=== PATIENT | female | born 1975 | race Caucasian/White ===

== ENCOUNTER 2017-01-14 23:24 | Emergency (ER) | payer MEDICAID ==
[~2017-01-14] VITALS: Ht 157.5 cm; Wt 99.8 kg
--- NOTE | 2017-01-14 23:26 | NUR ---
PATIENT STATES HAD A TRIP AND FALL 0100 TODAY AND NOW C/O LEFT KNEE PAIN,HEADACHE,NAUSEA WITH DIZZINESS, PT IS ALERT, ORIENTED X 4, NO RESP DISTRESS NOTED OR REPORTED UPON ASSESSMENT... MD AT BEDSIDE...
[2017-01-14] MEDS ORDERED: ONDANSETRON ODT 4 MG TAB.RAPDIS SL ONE (23:45)
[2017-01-14] MEDS ORDERED: LORAZEPAM 0.5 MG TABLET PO ONE (23:45)
[2017-01-14] MEDS ORDERED: OXYCODONE/APAP 5-325 MG TABLET PO ONE (23:45)
--- NOTE | 2017-01-14 23:49 | NUR ---
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
[2017-01-14] MEDS ORDERED: LORAZEPAM 0.5 MG TABLET ONE (23:56)
[2017-01-14] MEDS ORDERED: OXYCODONE/APAP 5-325 MG TABLET ONE (23:56)
[2017-01-14] MEDS ORDERED: ONDANSETRON ODT 4 MG TAB.RAPDIS ONE (23:56)
--- NOTE | 2017-01-15 00:09 | NUR ---
PT TAKEN VIA WHEEL CHAIR FOR CT SCAN OF HEAD...
--- NOTE | 2017-01-15 00:28 | NUR ---
PT RETURNED FROM CT SCAN OF HEAD...
--- NOTE | 2017-01-15 01:14 | NUR ---
Patient discharged to home in stable conditon. Written and verbal after care instructions given. Patient verbalizes understanding of instructions. Per pts request transferred pt via wheelchair...
[2017-01-15 01:18] VITALS: BP 126/81
== END 2017-01-15 01:19 | disposition home or self-care (01) ==
LOC: ER 23:24
DX: S83.92XA Sprain of unspecified site of left knee, initial encounter (principal); S93.402A Sprain of unspecified ligament of left ankle, initial encounter; E66.9 Obesity, unspecified; S09.90XA Unspecified injury of head, initial encounter; W01.0XXA Fall on same level from slipping, tripping and stumbling without subsequent striking against object, initial encounter; Y93.89 Activity, other specified; Y92.9 Unspecified place or not applicable; Y99.9 Unspecified external cause status
CPT/HCPCS: 70450; 73610; A4663; Q0162